=== PATIENT | male | born 2005 | race Hispanic/Latino ===

== ENCOUNTER 2023-02-20 18:43 | Emergency (ER) | payer OTHER, MEDICAID ==
[~2023-02-20] VITALS: Ht 170.2 cm; Wt 94.3 kg
[2023-02-20 18:46] VITALS: BP 139/89
[2023-02-20] MEDS ORDERED: CEFTRIAXONE 1G VIAL IM ONE (21:00)
[2023-02-20] MEDS ORDERED: KETOROLAC 60 MG VIAL (30MG/ML) IM ONE (21:00)
[2023-02-20] MEDS ORDERED: NAPR-1023 PO (21:08)
[2023-02-20] MEDS ORDERED: MUPI22OI2 TP (21:08)
[2023-02-20] MEDS ORDERED: CEPH500C2 PO (21:08)
[2023-02-20] MEDS ORDERED: SULF1TAB42 PO (21:08)
== END 2023-02-20 21:29 | disposition home or self-care (01) ==
LOC: EDH 18:43
DX: L05.01 Pilonidal cyst with abscess (principal); J45.909 Unspecified asthma, uncomplicated; Z90.89 Acquired absence of other organs
CPT/HCPCS: 10081; 99284; 87070; 96372 ×2; J0696; J1885

== ENCOUNTER 2023-02-22 07:14 | Emergency (ER) | payer OTHER, MEDICAID ==
[~2023-02-22] VITALS: Ht 170.2 cm; Wt 94.3 kg
[~2023-02-22 07:14] MED LIST: CEPH500C2 PO; MUPI22OI2 TP; NAPR-1023 PO; SULF1TAB42 PO
[2023-02-22 09:03] VITALS: BP 145/75
== END 2023-02-22 09:06 | disposition home or self-care (01) ==
LOC: EDH 07:14
DX: L05.01 Pilonidal cyst with abscess (principal); R03.0 Elevated blood-pressure reading, without diagnosis of hypertension; J45.909 Unspecified asthma, uncomplicated; Z79.899 Other long term (current) drug therapy; Z98.890 Other specified postprocedural states
CPT/HCPCS: 10080; 99282